=== PATIENT | female | born 1975 | race Caucasian/White ===

== ENCOUNTER 2018-02-10 23:27 | Emergency (ER) | payer OTHER ==
[2018-02-11] MEDS ORDERED: METHYLPREDNISOLONE 125 MG INJ IV
[2018-02-11] MEDS: DEXAMETHASONE 10 MG/ML 1 ML INJ IV (00:12)
[2018-02-11] MEDS: FAMOTIDINE 20 MG INJ IV (00:12)
[2018-02-11] MEDS: DIPHENHYDRAMINE 50 MG INJ IV (00:12)
[2018-02-11] MEDS: SOD CHLORIDE 0.9% 1,000 ML IV (00:13)
== END 2018-02-11 02:18 | disposition home or self-care (01) ==
LOC: FTE 23:27
DX: T78.3XXA Angioneurotic edema, initial encounter (principal)
CPT/HCPCS: 96374; 96375; 99284-25